=== PATIENT | female | born 1980 | race Caucasian/White ===

== ENCOUNTER 2020-01-20 12:46 | Outpatient (CLI) | payer OTHER ==
[2020-01-20] MEDS ORDERED: Iopamidol-370 76% 500 ML 1 ML ONE (14:33)
--- NOTE | 2020-01-20 15:51 | RAD ---
Exam: Voiding cystourethrogram HISTORY: Evaluate for obstructive uropathy COMPARISON: none Exposure: 1.6 minutes. 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 C ontrast opacifies the urinary bladder. No filling defect. No evidence of reflux during filling. Patient stated that she needed to void. The patient also happened to push out the straight-tipped cat heter. Despite waiting, the patient could not spontaneously void on the table. Patient went to the bathroom and was immediately placed on the fluoroscopic table. There is no evidence of residual contr ast in the bladder. Ureter cannot be assessed. No evidence of vesicoureteral reflux. Fluoroscopy over the region of the kidneys is not demonstrating contrast IMPRESSION: 1. No evidence of vesicoureteral reflux. 2. Limited evaluation the urethra due to patient's inability to void on the fluoroscopic.
== END 2020-01-20 12:47 | disposition home or self-care (01) ==
LOC: RAD 12:46
PROVIDERS: ATTEND Family Medicine
DX: N13.9 Obstructive and reflux uropathy, unspecified (principal)
CPT/HCPCS: 51600; 74455; Q9967